=== PATIENT | male | born 1995 | race American Indian/Alaskan Native ===

== ENCOUNTER 2019-09-23 10:06 | Emergency (ER) | payer OTHER ==
--- NOTE | 2019-09-23 12:27 | Emergency Department Report ---
ED Male HPI - General Chief complaint: Urogenital-Male Stated complaint: HSV OUTBREAK Time Seen by Provider: 09/23/19 11:53 Source: patient Mode of arrival: Ambulatory Limitations: No Limitations - History of Present Illness Initial comments: Patient is a 24-year-old male presents emergency room with complaints of an "HSV outbreak" that began this morning. He states that he has associated blisters located on the penis. He denies any penile discharge, dysuria, abdominal pain, vomiting, fever, testicular pain or edema. He states that he last had an outbreak last summer. He states that he just moved here and does not have a primary care doctor. He denies any past medical history or allergies medications. - Related Data Previous Rx's Medication Instructions Recorded Last Taken Type Acyclovir 400 mg PO TID 5 Days #15 tablet 09/23/19 Unknown Rx Allergies Allergy/AdvReac Type Severity Reaction Status Date / Time No Known Allergies Allergy Unverified 09/23/19 10:08 ED Review of Systems ROS: Stated complaint: HSV OUTBREAK Other details as noted in HPI Comment: All other systems reviewed and negative ED Past Medical Hx - Social History Smoking Status: Never Smoker Substance Use Type: Marijuana - Medications Home Medications: Home Medications Medication Instructions Recorded Confirmed Last Taken Type Acyclovir 400 mg PO TID 5 Days #15 tablet 09/23/19 Unknown Rx ED Physical Exam - General Limitations: No Limitations General appearance: alert, in no apparent distress - Head Head exam: Present: atraumatic, normocephalic - Eye Eye exam: Present: normal appearance - ENT ENT exam: Present: mucous membranes moist - exam: Present: other (small blisters present to the dorsal surface of the penis, no penile discharge, no testicular pain or edema, civil cadd technician: aron Arreaga) - Neurological Exam Neurological exam: Present: alert, oriented X3 - Psychiatric Psychiatric exam: Present: normal affect, normal mood - Skin Skin exam: Present: warm, dry, intact ED Course Vital Signs 09/23/19 19:08 Temperature 98.2 F Pulse Rate 77 Respiratory 18 Rate Blood Pressure 114/72 [Left] O2 Sat by Pulse 97 Oximetry ED Medical Decision Making - Lab Data Vital Signs 09/23/19 19:08 Temperature 98.2 F Pulse Rate 77 Respiratory 18 Rate Blood Pressure 114/72 [Left] O2 Sat by Pulse 97 Oximetry - Medical Decision Making Patient is a 24-year-old male presents emergency room with complaints of an "HSV outbreak" that began this morning. He states that he has associated blisters located on the penis. He denies any penile discharge, dysuria, abdominal pain, vomiting, fever, testicular pain or edema. He states that he last had an outbreak last summer. He states that he just moved here and does not have a primary care doctor. He denies any past medical history or allergies medications. on exam: small blisters present to the dorsal surface of the penis, no penile discharge, no testicular pain or edema, civil cadd technician: aron Arreaga. 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 pt given prescription for acyclovir. advised to Take medication as prescribed. Please follow-up with a primary care doctor or the health department for future management. return to the emergency room for any new or worsening symptoms. Critical care attestation.: If time is entered above; I have spent that time in minutes in the direct care of this critically ill patient, excluding procedure time. ED Disposition Clinical Impression: Herpes simplex virus (HSV) infection Disposition: TO HOME OR SELFCARE Is pt being admited?: No Does the pt Need Aspirin: No Condition: Stable Instructions: Genital Herpes Simplex (ED) Additional Instructions: Take medication as prescribed. Please follow-up with a primary care doctor or the health department for future management. return to the emergency room for any new or worsening symptoms. Prescriptions: Acyclovir 400 mg PO TID 5 Days #15 tablet Referrals: [facility] [Outside] - 2-3 Days [facility] [Outside] - 2-3 Days [facility] [Outside] - 2-3 Days Time of Disposition: 12:29 Print Language: TAJIK
[2019-09-23 19:09] VITALS: BP 114/72
== END 2019-09-23 12:40 | disposition home or self-care (01) ==
LOC: ED 10:06
DX: B00.9 Herpesviral infection, unspecified (principal); F12.10 Cannabis abuse, uncomplicated; Z79.899 Other long term (current) drug therapy

== ENCOUNTER 2019-10-31 16:43 | Emergency (ER) | payer OTHER | END 2019-10-31 20:05 | disposition left against medical advice (07) | LOC: ED 16:43 | DX: A54.9 Gonococcal infection, unspecified (principal); Z53.21 Procedure and treatment not carried out due to patient leaving prior to being seen by health care provider ==

== ENCOUNTER 2019-11-24 20:23 | Emergency (ER) | payer OTHER ==
--- NOTE | 2019-11-24 21:36 | Event Note ---
ED Screening Note Date of service: 11/24/19 Time: 21:32 ED Screening Note: 24 y.o. M. that presents to the ER with painful bump to proximal foreskin for 3 days. PMH of HIV and herpes Reports drainage for 3 days. This initial assessment/diagnostic orders/clinical plan/treatment(s) is/are subj ect to change based on patients health status, clinical progression and re- assessment by fellow clinical providers in the ED. Further treatment and workup at subsequent clinical providers discretion. Patient/guardian urged not to elope from the ED as their condition may be serious if not clinically assessed and managed. Initial orders include: ACC for further evaluation
[2019-11-24] MEDS ORDERED: HYDROcodone/ACETAMINOPHEN 5-325 MG TAB PO ONE (23:23)
[2019-11-24] MEDS ORDERED: IBUPROFEN 600 MG TAB PO ONE (23:23)
[2019-11-24] MEDS ORDERED: SULFAMETHOXAZOLE/TRIMETHOPRIM 800/160MG DS TAB PO ONE (23:23)
[2019-11-24] MEDS ORDERED: LIDOCAINE-MPF (1%) 10 MG/1 ML VIAL 5 ML INFILTRATI ONE (23:24)
--- NOTE | 2019-11-25 00:42 | Emergency Department Report ---
ED Male HPI - General Chief complaint: Urogenital-Male Stated complaint: PENILE DISCHARGE Time Seen by Provider: 11/24/19 21:31 Source: patient Mode of arrival: Ambulatory Limitations: No Limitations - History of Present Illness Initial comments: Patient is a 24-year-old -[place] male with no past medical history who presents to the ED with complaint of acute onset persistent painful swelling mildly erythematous maculopapular rash on penile shaft with thick purulent discharge for 4 days. Patient denies dysuria, urinary frequency and urgency, testicle pain, scrotal swelling, hematuria, penile discharge, dizziness, fever, chills, nausea, vomiting, traumatic injury, low back pain, cough or sore throat and abdominal pain. MD Complaint: penile discharge (purulent discharge from a penile rash), other (penile pain and swelling) -: Sudden, days(s) (4) Location: penis Radiation: none Severity: moderate Severity scale (0 -10): 6 Quality: aching, sharp Consistency: constant Improves with: none Worsens with: none new sexual partner denies other symptoms, swelling, rash. denies: discharge, mass, urinary retention, blood in urine, dysuria, fever, nausea/vomiting, incontinence - Related Data Sexually active: Yes Previous Rx's Medication Instructions Recorded Last Taken Type Acyclovir 400 mg PO TID 5 Days #15 tablet 09/23/19 Unknown Rx Doxycycline Hyclate 100 mg PO Q12H #20 tablet. 11/25/19 Unknown Rx Ibuprofen [Motrin] 600 mg PO Q8H PRN #24 tablet 11/25/19 Unknown Rx Allergies Allergy/AdvReac Type Severity Reaction Status Date / Time No Known Allergies Allergy Unverified 09/23/19 10:08 ED Review of Systems ROS: Stated complaint: PENILE DISCHARGE Other details as noted in HPI Constitutional: denies: chills, fever Eyes: denies: eye pain, eye discharge, vision change ENT: denies: ear pain, throat pain Respiratory: denies: cough, shortness of breath, wheezing Cardiovascular: denies: chest pain, palpitations Endocrine: no symptoms reported Gastrointestinal: denies: abdominal pain, nausea, diarrhea Genitourinary: other (Swelling, painful erythematous maculopapular rash on penile shaft with thick purulent discharge ). denies: urgency, dysuria Musculoskeletal: denies: back pain, joint swelling, arthralgia Skin: rash (Swelling painful erythematous maculopapular rash on the penile shaft with thick purulent discharge), pruritus. denies: lesions Neurological: denies: headache, weakness, paresthesias Psychiatric: denies: anxiety, depression Hematological/Lymphatic: denies: easy bleeding, easy bruising ED Past Medical Hx - Past Medical History Previous Medical History?: Yes Additional medical history: HSV-2, - Surgical History Past Surgical History?: No - Social History Smoking Status: Former Smoker Substance Use Type: None - Medications Home Medications: Home Medications Medication Instructions Recorded Confirmed Last Taken Type Acyclovir 400 mg PO TID 5 Days #15 tablet 09/23/19 Unknown Rx Doxycycline Hyclate 100 mg PO Q12H #20 tablet. 11/25/19 Unknown Rx Ibuprofen [Motrin] 600 mg PO Q8H PRN #24 tablet 11/25/19 Unknown Rx ED Physical Exam - General Limitations: No Limitations General appearance: alert, in no apparent distress - Head Head exam: Present: atraumatic, normocephalic, normal inspection - Eye Eye exam: Present: normal appearance, PERRL, EOMI Pupils: Present: normal accommodation - ENT ENT exam: Present: normal exam, normal orophraynx, mucous membranes moist, TM's normal bilaterally, normal external ear exam - Neck Neck exam: Present: normal inspection, full ROM. Absent: tenderness, lymphadenopathy - Respiratory Respiratory exam: Present: normal lung sounds bilaterally. Absent: respiratory distress, wheezes, rales, rhonchi, chest wall tenderness, accessory muscle use, decreased breath sounds - Cardiovascular Cardiovascular Exam: Present: regular rate, normal rhythm, normal heart sounds. Absent: systolic murmur, diastolic murmur, rubs, gallop - GI/Abdominal GI/Abdominal exam: Present: soft, normal bowel sounds. Absent: tenderness, guarding, hyperactive bowel sounds, hypoactive bowel sounds - Rectal Rectal exam: Present: deferred - exam: Present: circumcision, other (penile shaft swelling with tenderness and purulent discharge) External exam: Present: erythema, swelling, other (swollen mildly erythematous rash on penile shaft with tenderness and purulent discharge) - Extremities Exam Extremities exam: Present: normal inspection, full ROM, normal capillary refill - Back Exam Back exam: Present: normal inspection, full ROM. Absent: tenderness, muscle spasm, paraspinal tenderness, vertebral tenderness - Neurological Exam Neurological exam: Present: alert, oriented X3, CN II-XII intact, normal gait, reflexes normal - Psychiatric Psychiatric exam: Present: normal affect, normal mood - Skin Skin exam: Present: warm, dry, intact, normal color, rash (swollen tender mildly erythematous rash on penile shaft with purulent discharge), erythema ED Course Vital Signs 11/24/19 20:29 Temperature 98.4 F Pulse Rate 70 Respiratory 20 Rate Blood Pressure 121/77 O2 Sat by Pulse 98 Oximetry ED Medical Decision Making - Medical Decision Making This is a 24-year-old male who presented to the ED with complaint of acute onset painful swollen erythematous maculopapular rash on penile shaft with thick purulent discharge. In the ED, patient is alert and oriented x3 and is in no acute distress. Patient was treated for pain in the ED and also received initial antibiotics. Patient was discharged home on antibiotics prescriptions and pain medications and was advised to follow-up at the [facility] for further evaluation and testing. Patient was advised to return to the ED immediately if symptoms get worse otherwise follow-up with his primary care physician in 7 to 10 days for reevaluation. - Differential Diagnosis folliculitis; Syphilitic lesion; Abscess; STD Critical care attestation.: If time is entered above; I have spent that time in minutes in the direct care of this critically ill patient, excluding procedure time. ED Disposition Clinical Impression: Acute folliculitis, Pain in the penis, Abscess of shaft of penis Disposition: DC-01 TO HOME OR SELFCARE Is pt being admited?: No Does the pt Need Aspirin: No Condition: Stable Instructions: Abscess (ED), Folliculitis (ED) Additional Instructions: Take medication with food, drink plenty of fluids and follow-up with your primary care physician in 7 to 10 days for reevaluation. Consider following up with the [facility] for further STD testing. Return to the ED immediately if symptoms get worse. Prescriptions: Doxycycline Hyclate 100 mg PO Q12H #20 tablet. Ibuprofen [Motrin] 600 mg PO Q8H PRN #24 tablet PRN Reason: Pain Referrals: [facility] [Outside] - 7-10 days Time of Disposition: 00:43 Print Language: OCCITAN
[2019-11-25 00:50] VITALS: BP 120/70
== END 2019-11-25 00:53 | disposition home or self-care (01) ==
LOC: ED 20:23
DX: L73.9 Follicular disorder, unspecified (principal); N48.21 Abscess of corpus cavernosum and penis; B00.9 Herpesviral infection, unspecified; Z87.891 Personal history of nicotine dependence; Z79.1 Long term (current) use of non-steroidal anti-inflammatories (NSAID); Z79.899 Other long term (current) drug therapy
CPT/HCPCS: 96372; 99282; J0696

== ENCOUNTER 2020-09-04 16:30 | Emergency (ER) | payer SELFPAY ==
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
[2020-09-04] MEDS ORDERED: DIPHtheria,PERTUSSIS(ACELL),TETANUS VACCINE/PF 0.5 ML VIAL IM ONE (19:25)
[2020-09-04] MEDS ORDERED: NEOMY 3.5 MG/BACIT 400 UNITS/POLY B 5000 UNITS/GM OINT PACKET TP ONE (19:25)
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
[2020-09-04] MEDS ORDERED: IBUPROFEN 600 MG TAB PO ONE (19:34)
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
[2020-09-04 20:11] VITALS: BP 109/62
== END 2020-09-04 20:50 | disposition home or self-care (01) ==
LOC: ED 16:30
DX: S29.012A Strain of muscle and tendon of back wall of thorax, initial encounter (principal); S80.212A Abrasion, left knee, initial encounter; M25.511 Pain in right shoulder; M25.512 Pain in left shoulder; V89.2XXA Person injured in unspecified motor-vehicle accident, traffic, initial encounter; Y93.89 Activity, other specified; Y92.410 Unspecified street and highway as the place of occurrence of the external cause; Y99.8 Other external cause status
CPT/HCPCS: 72072; 73030; 73562; 90471; 90715; 99283; A6250

== ENCOUNTER 2021-08-28 07:35 | Emergency (ER) | payer SELFPAY ==
[2021-08-28 07:42] VITALS: BP 110/72
--- NOTE | 2021-08-28 08:57 | Emergency Department Report ---
ED General Adult HPI - General Chief complaint: Urogenital-Male Stated complaint: SYPHYLLIS Time Seen by Provider: 08/28/21 07:50 Source: patient Mode of arrival: Ambulatory Limitations: No Limitations - History of Present Illness Initial comments: 26-year-old -Mal[place]ian male patient presents with complaints of suprapubic lesions x3 days. Patient states he believes he may have syphilis. He denies any risky sexual behavior, fever/chills/sweats, neurological symptoms, dysuria/hematuria/urinary frequency, or penile discharge. No testicular pain or swelling per patient. He reports it started with one small bump that came to ahead and popped and now he has 2 other small mildly tender bumps in the area. Patient admits to shaving 1 week prior to the bumps appearing. - Related Data Previous Rx's Medication Instructions Recorded Last Taken Type Acyclovir 400 mg PO TID 5 Days #15 tablet 09/23/19 Unknown Rx Doxycycline Hyclate 100 mg PO Q12H #20 tablet. 11/25/19 Unknown Rx Ibuprofen [Motrin] 600 mg PO Q8H PRN #24 tablet 11/25/19 Unknown Rx Naproxen [EC-Naprosyn] 500 mg PO BID PRN #14 tablet. 09/04/20 Unknown Rx Neomycin/Bacitracin/Polymyxinb 1 applicatio TP BID #14 oint...g. 09/04/20 Unknown Rx [Triple Antibiotic Ointment] Ibuprofen [Motrin 800 MG tab] 800 mg PO Q8HR PRN #15 tablet 08/28/21 Unknown Rx Mupirocin [Bactroban 2% OINT] 1 applic TP TID 7 Days #1 tube 08/28/21 Unknown Rx Sulfamethoxazole/Trimethoprim 1 each PO BID 7 Days #14 tablet 08/28/21 Unknown Rx [Bactrim DS TAB] Allergies Allergy/AdvReac Type Severity Reaction Status Date / Time No Known Allergies Allergy Unverified 09/23/19 10:08 ED Review of Systems ROS: Stated complaint: SYPHYLLIS Other details as noted in HPI Constitutional: denies: chills, diaphoresis, malaise Gastrointestinal: denies: abdominal pain Genitourinary: as per HPI Skin: lesions. denies: change in color Neurological: denies: headache, numbness, paresthesias Hematological/Lymphatic: denies: swollen glands ED Past Medical Hx - Past Medical History Previous Medical History?: Yes Hx Asthma: Yes Additional medical history: HSV-2, - Surgical History Past Surgical History?: Yes - Social History Smoking Status: Never Smoker Substance Use Type: None - Medications Home Medications: Home Medications Medication Instructions Recorded Confirmed Last Taken Type Acyclovir 400 mg PO TID 5 Days #15 tablet 09/23/19 Unknown Rx Doxycycline Hyclate 100 mg PO Q12H #20 tablet. 11/25/19 Unknown Rx Ibuprofen [Motrin] 600 mg PO Q8H PRN #24 tablet 11/25/19 Unknown Rx Naproxen [EC-Naprosyn] 500 mg PO BID PRN #14 tablet. 09/04/20 Unknown Rx Neomycin/Bacitracin/Polymyxinb 1 applicatio TP BID #14 oint...g. 09/04/20 Unknown Rx [Triple Antibiotic Ointment] Ibuprofen [Motrin 800 MG tab] 800 mg PO Q8HR PRN #15 tablet 08/28/21 Unknown Rx Mupirocin [Bactroban 2% OINT] 1 applic TP TID 7 Days #1 tube 08/28/21 Unknown Rx Sulfamethoxazole/Trimethoprim 1 each PO BID 7 Days #14 tablet 08/28/21 Unknown Rx [Bactrim DS TAB] ED Physical Exam - General Limitations: No Limitations General appearance: alert, in no apparent distress - Head Head exam: Present: atraumatic, normocephalic - Eye Eye exam: Present: normal appearance. Absent: scleral icterus - Respiratory Respiratory exam: Absent: respiratory distress - Cardiovascular Cardiovascular Exam: Present: regular rate - Neurological Exam Neurological exam: Present: alert, oriented X3 - Psychiatric Psychiatric exam: Present: normal affect, normal mood - Skin Skin exam: Present: warm, dry, normal color, other (Tiny crusted over bump noted to suprapubic region with minimal induration; no erythema noted; it is tender to palpation; 2 small papules noted which appear to be folliculitis in the upper pubic region). Absent: rash ED Course Vital Signs 08/28/21 07:41 Temperature 99.3 F Pulse Rate 86 Respiratory 16 Rate Blood Pressure 110/72 O2 Sat by Pulse 99 Oximetry ED Medical Decision Making - Medical Decision Making 26-year-old -Mal[place] male patient presents with complaints of suprapubic lesions x3 days. Patient states he believes he may have syphilis. He denies any risky sexual behavior, fever/chills/sweats, neurological symptoms, dysuria/hematuria/urinary frequency, or penile discharge. No testicular pain or swelling per patient. He reports it started with one small bump that came to ahead and popped and now he has 2 other small mildly tender bumps in the area. Patient admits to shaving 1 week prior to the bumps appearing. Patient admits to history of herpes, however these lesions appear to be due to folliculitis. Will treat with warm compresses and antibiotics. Patient's vitals are within normal limits, he/she is well-appearing, and is stable for discharge home. Recommend patient follows up with his PCP in 3 to 5 days. Discussed presumptive diagnosis, care plan, signs and symptoms that should prompt immediate return to the ED with patient who verbalizes understanding Critical care attestation.: If time is entered above; I have spent that time in minutes in the direct care of this critically ill patient, excluding procedure time. ED Disposition Clinical Impression: Folliculitis Disposition: 01 HOME / SELF CARE / HOMELESS Is pt being admited?: No Condition: Stable Instructions: Folliculitis Prescriptions: Sulfamethoxazole/Trimethoprim [Bactrim DS TAB] 1 each PO BID 7 Days #14 tablet Mupirocin [Bactroban 2% OINT] 1 applic TP TID 7 Days #1 tube Ibuprofen [Motrin 800 MG tab] 800 mg PO Q8HR PRN #15 tablet PRN Reason: pain Referrals: PRIMARY CARE, [Primary Care Provider] - 3-5 Days Forms: Work/School Release Form(ED)
== END 2021-08-28 09:01 | disposition home or self-care (01) ==
LOC: ED 07:35
DX: L73.9 Follicular disorder, unspecified (principal); J45.909 Unspecified asthma, uncomplicated
CPT/HCPCS: 99281